=== PATIENT | male | born 1975 | race African-American/Black ===

== ENCOUNTER 2018-12-25 20:39 | Emergency (ER) | payer BC ==
[2018-12-25 20:51] VITALS: BP 151/97; PULSE 90; TEMP 99; BMI 33.5
--- NOTE | 2018-12-25 20:52 | PDOC ---
Rapid Medical Evaluation Chief Complaint: Back Pain Medical Evaluation: Allergies Allergy/AdvReac Type Severity Reaction Status Date / Time No Known Allergies Allergy Verified 05/21/14 07:35 12/25/18 20:48 I have performed a brief in-person evaluation of this patient. The patient presents with a chief complaint of:back pain x 3 weeks., States PT been working on back issues. Today was doing cleaning with worsen pain, did not take any meds. Pertinent physical exam findings: squirming , walks slowly, no reproduced pain with palp. I have ordered the following: nothing The patient will proceed to the ED for further evaluation. Discharge Disposition - Diagnosis Back pain Qualifiers: Back pain location: low back pain - Referrals - Patient Instructions - Post Discharge Activity
[2018-12-25 22:04] LABS: URINE APPEARANCE CLEAR; URINE BILIRUBIN NEGATIVE (<2.0 mg/dL); URINE COLOR LTYELLOW; URINE GLUCOSE (UA) NEGATIVE (NEGATIVE); URINE KETONE NEGATIVE (NEGATIVE); URINE LEUK ESTERASE NEGATIVE (NEGATIVE); URINE NITRITE NEGATIVE (NEGATIVE); URINE PROTEIN NEGATIVE (NEGATIVE); URINE UROBILINOGEN NEGATIVE mg/dL (0.2-1.0)
[2018-12-25 22:15] LABS: URINE MUCUS RARE
--- NOTE | 2018-12-25 22:56 | PDOC ---
History of Present Illness - General Chief Complaint: Back Pain Stated Complaint: LOWER BACK PAIN Time Seen by Provider: 12/25/18 21:11 History Source: Patient - History of Present Illness Initial Comments: 12/25/18 22:52 43-year-old male complaining of right flank pain radiating to the right groin and right testicle on and off for the last 2 weeks. Patient reports that for 3 weeks he's been having an ongoing lower back pain. Patient is currently lifting weights for a competition and unsure if injury and reports that this pain is different than his lower back pain. Reports that the pain is intermittent in nature. pain worse with movement Denies dysuria, penile discharge, frequency of urination, hematuria. 12/25/18 22:55 Past History - Past Medical History Allergies/Adverse Reactions: Allergies Allergy/AdvReac Type Severity Reaction Status Date / Time No Known Allergies Allergy Verified 05/21/14 07:35 Home Medications: Ambulatory Orders Cyclobenzaprine HCl [Flexeril -] 10 mg PO TID PRN #21 tablet 12/25/18 Ibuprofen 600 mg PO QID PRN #20 tablet 12/25/18 HTN: Yes Hypercholesterolemia: Yes - Suicide/Smoking/Psychosocial Hx Smoking History: Current every day smoker Have you smoked in the past 12 months: Yes Number of Cigarettes Smoked Daily: 8 Information on smoking cessation initiated: Yes Hx Alcohol Use: No Drug/Substance Use Hx: No Review of Systems - Review of Systems Able to Perform ROS?: Yes Is the patient limited Citizen Of [place] proficient: No Constitutional: No: Symptoms Reported, See HPI, Chills, Diaphoresis, Fever, Loss of Appetite, Malaise, Night Sweats, Weakness, Weight Stable, Unintentional Wgt. Loss, Unexplained wgt Loss, Other : Yes: Testicular Pain (right testicular pain) *Physical Exam - Vital Signs Last Vital Signs Temp Pulse Resp BP Pulse Ox 99 F 90 20 151/97 98 12/25/18 20:46 12/25/18 20:46 12/25/18 20:46 12/25/18 20:46 12/25/18 20:46 - Physical Exam General Appearance: Yes: Appropriately Dressed Respiratory/Chest: positive: Lungs Clear, Normal Breath Sounds Gastrointestinal/Abdominal: positive: Normal Bowel Sounds, Soft Male Genitalia: negative: testicular tenderness, testicular mass, epididymus tender, inguinal hernia Musculoskeletal: negative: Vertebral Tenderness (no midline tenderness) Extremity: positive: Normal Capillary Refill, Normal Inspection, Normal Range of Motion Integumentary: positive: Normal Color, Dry, Warm Moderate Sedation - Procedure Monitoring Vital Signs: Procedure Monitoring Vital Signs Temperature 99 F 12/25/18 20:46 Pulse Rate 90 12/25/18 20:46 Respiratory Rate 20 12/25/18 20:46 Blood Pressure 151/97 12/25/18 20:46 O2 Sat by Pulse Oximetry (%) 98 12/25/18 20:46 ED Treatment Course - ADDITIONAL ORDERS Additional order review: Laboratory Results 12/25/18 21:55 Urine Color Ltyellow Urine Appearance Clear Urine pH 7.0 Ur Specific [place] 1.015 Urine Protein Negative Urine Glucose (UA) Negative Urine Ketones Negative Urine Blood 1+ H Urine Nitrite Negative Urine Bilirubin Negative Urine Urobilinogen Negative Ur Leukocyte Esterase Negative Urine WBC (Auto) None Urine RBC (Auto) 2 Urine Mucus Rare - RADIOLOGY Radiology Studies Ordered: Category Date Time Status SPIRAL- RENAL-STONE CT [CT] Stat CT Scan 12/25/18 21:36 Completed SCROTUM AND CONTENTS US [US] Stat Ultrasound 12/25/18 21:36 Taken Medical Decision Making - Medical Decision Making 12/25/18 22:51 cT scan: There is no definite CT findings of acute pathology. No evidence of urolithiasis or hydronephrosis. Mild bilateral adrenal gland thickening is seen which may be on the basis of hyperplasia or subcentimeter adenomas. Several slightly prominent bilateral inguinal lymph nodes are noted. 12/25/18 23:23 testicular us: negative. b/l hydroceles A: likely pain musculoskeletal will d/c home follow up with urology for hydrocele *DC/Admit/Observation/Transfer Diagnosis at time of Disposition: Testicular pain, right Back pain Qualifiers: Back pain location: low back pain Chronicity: acute Back pain laterality: right Sciatica presence: without sciatica Qualified Code(s): M54.5 - Low back pain - Discharge Dispostion Disposition: HOME - Prescriptions Prescriptions: Cyclobenzaprine HCl [Flexeril -] 10 mg PO TID PRN #21 tablet PRN Reason: Muscle Spasms Ibuprofen 600 mg PO QID PRN #20 tablet PRN Reason: Back Pain - Referrals Referrals: Yoni Fernández MD [Primary Care Provider] - Jorje Toth MD [Staff Physician] - Call tomorrow - Patient Instructions Printed Discharge Instructions: Low Back Pain Additional Instructions: apply ice/ heat to the area take ibuprofen every 6 hours as needed for pain follow up with a urologist. continue physical therapy as prescribed. Additional Instructions: * Please call your personal physician to report your Emergency Department visit and to report your progress, if any. * If there is no improvement in symptoms in 2 days call your physician. * Return to the Emergency Department for any worsening symptoms. - Post Discharge Activity Forms/Work/School Notes: Back to Work
[2018-12-25] MEDS ORDERED: KETOROLAC TROMETHAMINE 60 MG/2 ML VIAL IM ONE (23:04)
[2018-12-25] MEDS ORDERED: diazePAM 5 MG TABLET PO ONE (23:32)
[2018-12-25] MEDS ORDERED: diazePAM 5 MG TABLET ONE (23:44)
[2018-12-25] MEDS ORDERED: KETOROLAC TROMETHAMINE 60 MG/2 ML VIAL ONE (23:44)
== END 2018-12-26 00:11 | disposition home or self-care (01) ==
LOC: JERFT 20:39
PROC: 3E0233Z Introduction of Anti-inflammatory into Muscle, Percutaneous Approach (ICD-10-PCS; principal; 2018-12-25)
DX: N43.2 Other hydrocele (principal); N50.811 Right testicular pain; M54.5 Low back pain
CPT/HCPCS: 74176; 76870-TC; 81003; 81015; 99281-25

== ENCOUNTER 2021-05-15 18:10 | Inpatient (IN) | payer BC ==
[2021-05-15 18:27] VITALS: BMI 32.3
[2021-05-15] MEDS ORDERED: FAMOTIDINE 20 MG/50 ML IVPB 20 MG/50 ML MG IVPB ONE ×2 (19:33→19:40)
[2021-05-15] MEDS ORDERED: SODIUM CHLORIDE 0.9% 500 ML INFUS.BAG IV ONE ×2 (19:33→21:01)
[2021-05-15] MEDS ORDERED: morphine CARPU-JECT 4 MG/1 ML DISP.SYRIN IVPUSH ONE ×2 (19:33→21:01)
[2021-05-15] MEDS ORDERED: morphine SULFATE 4 MG/ML VIAL ONE ×2 (19:39→21:12)
[2021-05-15 20:12] LABS: BASO % 0.3 % (0-2.0); EOS % 0.4 % (0-4.5); HEMATOCRIT 38.6 % (35.4-49); HEMOGLOBIN 12.7 GM/dL (11.7-16.9); LYMPH % 20.3 % (8-40); MCH 26.9 pg (25.7-33.7); MCHC 32.9 g/dl (32.0-35.9); MEAN CELL VOLUME 81.9 fl (80-96); MEAN PLT VOLUME 8.8 fl (7.5-11.1); MONO % 6.5 % (3.8-10.2); NEUT % 72.5 % (42.8-82.8); PLATELET COUNT 264 10^3/uL (134-434); RBC 4.72 M/mm3 (4.00-5.60); RDW 14.2 % (11.9-15.9); WHITE BLOOD COUNT 11.4 K/mm3 (4.0-10.0)
[2021-05-15 20:18] LABS: INR 1.06 (0.83-1.09); PROTHROMBIN TIME (PATIENT) 12.8 SEC (9.7-13.0)
[2021-05-15 20:36] LABS: ALBUMIN 3.8 g/dl (3.4-5.0); CALCIUM 9.2 mg/dL (8.5-10.1)
[2021-05-15 20:39] LABS: CREATININE 1.4 mg/dL (0.55-1.3)
[2021-05-15 20:41] LABS: BILIRUBIN,TOTAL 0.4 mg/dL (0.2-1); TOT PROT 6.7 g/dl (6.4-8.2)
[2021-05-15] MEDS ORDERED: MORPHINE SULFATE 2 MG/ML VIAL ONE (23:53)
[2021-05-15] MEDS ORDERED: PIPERACILLIN/TAZOB 3.375 GM 3.375 GM/50 ML BAG IVPB ONE (23:53)
[2021-05-16] MEDS: MORPHINE SULFATE 2 MG/ML VIAL IVPUSH PRN ×2 (00:04→09:51)
[2021-05-16] MEDS: DEXTROSE 5%-0.45% SALINE 1,000 ML IV SCH ×4 (00:04→23:00)
[2021-05-16] MEDS ORDERED: PIPERACILLIN/TAZOB 3.375 GM 3.375 GM in DEXTROSE 5%-WATER - 50 ML IVPB SCH (02:00)
[2021-05-16] MEDS ORDERED: PIPERACILLIN/TAZOB 3.375 GM 3.375 GM/50 ML BAG IVPB SCH (02:00)
[2021-05-16] MEDS ORDERED: PIPERACILLIN/TAZOB 3.375 GM 3.375 GM in DEXTROSE 5%-WATER - 3.375 GM/50 ML IVPB IVPB SCH (04:34)
[2021-05-16 08:15] LABS: BASO % 0.3 % (0-2.0); EOS % 0.5 % (0-4.5); HEMOGLOBIN 12.6 GM/dL (11.7-16.9); LYMPH % 16.6 % (8-40); MCH 27.1 pg (25.7-33.7); MCHC 33.1 g/dl (32.0-35.9); MONO % 9.1 % (3.8-10.2); NEUT % 73.5 % (42.8-82.8); PLATELET COUNT 239 10^3/uL (134-434); RBC 4.64 M/mm3 (4.00-5.60); RDW 14.4 % (11.9-15.9); WHITE BLOOD COUNT 10.2 K/mm3 (4.0-10.0)
[2021-05-16 08:31] LABS: CALCIUM 8.4 mg/dL (8.5-10.1)
[2021-05-16 08:32] LABS: ALBUMIN 3.3 g/dl (3.4-5.0); BLOOD UREA NITROGEN 10.9 mg/dL (7-18)
[2021-05-16 08:35] LABS: CREATININE 1.1 mg/dL (0.55-1.3)
[2021-05-16 08:37] LABS: BILIRUBIN,TOTAL 0.8 mg/dL (0.2-1); TOT PROT 6.2 g/dl (6.4-8.2)
[2021-05-16] MEDS ORDERED: DEXTROSE 5%-WATER - 50 ML IVPB ONE ×2 (09:10→16:06)
[2021-05-16] MEDS ORDERED: PIPERACILLIN/TAZOBACTAM 3.375 GM VIAL IVPB ONE ×2 (09:10→16:06)
[2021-05-16] MEDS: ENOXAPARIN NA (PORCINE) 40 MG/0.4 ML DISP.SYRIN SQ SCH (09:53)
[2021-05-16] MEDS: NIFEdipine E.R. 90 MG TABLET PO SCH (09:53)
[2021-05-16] MEDS: metoPROLOL SUCCINATE 25 MG TAB.SR.24H (FP) PO SCH (09:53)
[2021-05-16] MEDS ORDERED: MORPHINE SULFATE 2 MG/ML VIAL IVPUSH PRN (12:54)
[2021-05-16] MEDS: PIPERACILLIN/TAZOB 3.375 GM 3.375 GM in DEXTROSE 5%-WATER - 50 ML IVPB SCH (17:10)
[2021-05-16] MEDS ORDERED: ATORVASTATIN CA 40 MG TABLET (FP) PO SCH (22:00)
[2021-05-17] MEDS ORDERED: PIPERACILLIN/TAZOBACTAM 3.375 GM VIAL IVPB ONE ×2 (01:00→08:10)
[2021-05-17] MEDS ORDERED: DEXTROSE 5%-WATER - 50 ML IVPB ONE ×2 (01:00→08:10)
[2021-05-17] MEDS: PIPERACILLIN/TAZOB 3.375 GM 3.375 GM in DEXTROSE 5%-WATER - 50 ML IVPB SCH ×2 (01:15→09:15)
[2021-05-17 09:08] LABS: BASO % 0.3 % (0-2.0); EOS % 1.8 % (0-4.5); HEMATOCRIT 38.8 % (35.4-49); HEMOGLOBIN 12.6 GM/dL (11.7-16.9); LYMPH % 28.9 % (8-40); MCH 26.8 pg (25.7-33.7); MCHC 32.5 g/dl (32.0-35.9); MEAN CELL VOLUME 82.2 fl (80-96); MONO % 7.6 % (3.8-10.2); NEUT % 61.4 % (42.8-82.8); PLATELET COUNT 256 10^3/uL (134-434); RBC 4.72 M/mm3 (4.00-5.60); RDW 14.2 % (11.9-15.9); WHITE BLOOD COUNT 7.9 K/mm3 (4.0-10.0)
[2021-05-17] MEDS: ENOXAPARIN NA (PORCINE) 40 MG/0.4 ML DISP.SYRIN SQ SCH (09:15)
[2021-05-17] MEDS: NIFEdipine E.R. 90 MG TABLET PO SCH (09:15)
[2021-05-17] MEDS: metoPROLOL SUCCINATE 25 MG TAB.SR.24H (FP) PO SCH (09:15)
[2021-05-17 09:27] LABS: ALBUMIN 3.4 g/dl (3.4-5.0); BLOOD UREA NITROGEN 7.9 mg/dL (7-18); CALCIUM 8.9 mg/dL (8.5-10.1)
[2021-05-17 09:31] LABS: CREATININE 1.1 mg/dL (0.55-1.3)
[2021-05-17 09:32] LABS: BILIRUBIN,TOTAL 0.9 mg/dL (0.2-1); TOT PROT 6.5 g/dl (6.4-8.2)
[2021-05-17 13:25] VITALS: BP 110/74; PULSE 64; TEMP 98.6
== END 2021-05-17 15:09 | disposition home or self-care (01) | DRG 392 ==
LOC: JER 18:10 → JERBED 20:58 → J6S 05-16 03:19
PROVIDERS: ADMIT Internal Medicine; ATTEND Internal Medicine
DX: K52.9 Noninfective gastroenteritis and colitis, unspecified (principal); I10 Essential (primary) hypertension; E78.5 Hyperlipidemia, unspecified; K21.9 Gastro-esophageal reflux disease without esophagitis; F17.210 Nicotine dependence, cigarettes, uncomplicated
CPT/HCPCS: 36415; 80053; 85025; 85610; 86850; 86900; 86901; 93005; 93010; 99285-25; C9803; U0003; U0005